=== PATIENT | male | born 1975 | race Caucasian/White ===

== ENCOUNTER 2020-08-03 15:15 | Emergency (ER) | payer SELFPAY ==
--- NOTE | 2020-08-03 15:25 | NUR ---
ATTEMPTED TO TRIAGE PT, PT WAS NOT FOUND IN ER WAITING ROOM OR OUTSIDE ER.
--- NOTE | 2020-08-03 15:55 | NUR ---
ATTEMPTED TO TRIAGE PT A FEW TIMES. PT WAS NEVER FOUND IN ER WAITING ROOM OR OUTSIDE ER.
== END 2020-08-03 15:56 | disposition left against medical advice (07) ==
LOC: ER 15:17
DX: Z75.3 Unavailability and inaccessibility of health-care facilities (principal)